=== PATIENT | male | born 1990 | race Caucasian/White ===

== ENCOUNTER 2022-03-18 10:36 | Emergency (ER) | payer OTHER ==
[~2022-03-18] VITALS: Ht 182.9 cm; Wt 116.9 kg
[2022-03-18] MEDS ORDERED: LOSARTAN 50MG TABLET PO ONE (16:40)
[2022-03-18] MEDS ORDERED: amLODIPine 5 MG TAB PO ONE (16:40)
[2022-03-18] MEDS ORDERED: hydroCHLOROthiazide 12.5 MG CAPSULE PO ONE (16:40)
[2022-03-18 17:00] LABS: HEMATOCRIT 46.3 % (42.0-52.0); HEMOGLOBIN 15.6 g/dl (13.5-17.5); MEAN CORPUSCULAR HEMOGLOBIN 29.5 pg (27.0-33.0); MEAN CORPUSCULAR HGB CONC 33.7 g/dl (32.0-36.5); MEAN CORPUSCULAR VOLUME 87.7 fl (80.0-96.0); PLATELET COUNT, AUTOMATED 277 10^3/uL (150-450); RED BLOOD COUNT 5.28 10^6/uL (4.30-6.10)
[2022-03-18 17:19] LABS: BLOOD UREA NITROGEN 12 MG/DL (7-18); CALCIUM LEVEL 9.3 MG/DL (8.5-10.1); CARBON DIOXIDE LEVEL 30 MEQ/L (21-32); CHLORIDE LEVEL 105 MEQ/L (98-107); CREATININE FOR GFR 1.12 MG/DL (0.70-1.30); GLOMERULAR FILTRATION RATE > 60.0 (>60); GLUCOSE, FASTING 80 MG/DL (70-100); POTASSIUM SERUM 4.2 MEQ/L (3.5-5.1); SODIUM LEVEL 139 MEQ/L (136-145)
[2022-03-18 17:27] VITALS: BP 154/103
[2022-03-18 17:34] LABS: ATYPICAL LYMPH 13 % (0-5); BASOPHILS 1 % (0-1); EOSINOPHILS 1 % (0-3); LYMPHOCYTES 42 % (16-44); MONOCYTES 3 % (0-5); NEUTROPHILS 40 % (28-66); PLATELET ESTIMATE NORMAL (NORMAL)
[2022-03-18 18:31] VITALS: BP 164/106
== END 2022-03-18 18:55 | disposition home or self-care (01) ==
LOC: M ED 10:36
DX: I10 Essential (primary) hypertension (principal)

== ENCOUNTER → 2022-06-24 | Outpatient (CLI) | payer OTHER | LOC: M SLEEP HO 13:29 | PROVIDERS: ATTEND Internal Medicine Cardiovascular Disease | DX: R06.83 Snoring (principal) ==

== ENCOUNTER 2024-03-09 10:33 | Emergency (ER) | payer OTHER ==
[~2024-03-09] VITALS: Ht 182.9 cm; Wt 108.5 kg
[2024-03-09 10:33] VITALS: BP 137/78; TEMP 97.5; O2SAT 99
[2024-03-09] MEDS ORDERED: LORA-930 (10:50)
[2024-03-09] MEDS ORDERED: LOSA50TA28 (10:50)
[2024-03-09] MEDS ORDERED: AMLO1TAB25 (10:50)
[2024-03-09] MEDS ORDERED: METO1TAB7 (10:50)
== END 2024-03-09 13:57 | disposition home or self-care (01) ==
LOC: M ED 10:33
DX: S42.021A Displaced fracture of shaft of right clavicle, initial encounter for closed fracture (principal); Y92.9 Unspecified place or not applicable; Y93.9 Activity, unspecified; Y99.9 Unspecified external cause status; I10 Essential (primary) hypertension; V00.131A Fall from skateboard, initial encounter; Z79.899 Other long term (current) drug therapy

== ENCOUNTER → 2024-03-12 | Outpatient (CLI) | payer OTHER ==
[~2024-03-12] MED LIST: AMLO1TAB25; LORA-930; LOSA50TA28; METO1TAB7; OXYC1TAB23 PO
== END ==
LOC: M SOG 09:21
PROVIDERS: ATTEND Orthopaedic Surgery
DX: S42.001A Fracture of unspecified part of right clavicle, initial encounter for closed fracture (principal); W18.30XA Fall on same level, unspecified, initial encounter; Y92.009 Unspecified place in unspecified non-institutional (private) residence as the place of occurrence of the external cause

== ENCOUNTER → 2024-03-12 | Outpatient (CLI) | payer OTHER ==
[2024-03-12 11:20] LABS: BASO % 0.4 % (0.0-1.0); EOS # 0.2 10^3/uL (0.0-0.5); EOS % 2.5 % (0.0-3.0); HEMATOCRIT 44.8 % (42.0-52.0); HEMOGLOBIN 15.1 g/dl (13.5-17.5); LYMPH # 2.4 10^3/uL (1.5-5.0); LYMPH % 26.1 % (24.0-44.0); MEAN CORPUSCULAR HEMOGLOBIN 29.8 pg (27.0-33.0); MEAN CORPUSCULAR HGB CONC 33.7 g/dl (32.0-36.5); MEAN CORPUSCULAR VOLUME 88.4 fl (80.0-96.0); MONO # 0.7 10^3/uL (0.0-0.8); NEUTROPHILS # 5.9 10^3/uL (1.5-8.5); NEUTROPHILS % 63.7 % (36.0-66.0); PLATELET COUNT, AUTOMATED 272 10^3/uL (150-450); RED BLOOD COUNT 5.07 10^6/uL (4.30-6.10); WHITE BLOOD COUNT 9.3 10^3/uL (4.0-10.0)
[2024-03-12 11:33] LABS: INR 0.99; PROTHROMBIN TIME 12.8 SECONDS (12.5-14.5)
[2024-03-12 11:42] LABS: ALBUMIN 4.1 G/DL (3.2-5.2); ALKALINE PHOSPHATASE 114 U/L (46-116); ALT/SGPT 34 U/L (7.0-40); AST/SGOT 23 U/L (<34); BILIRUBIN,TOTAL 0.9 MG/DL (0.3-1.2); BLOOD UREA NITROGEN 10 MG/DL (9-23); CALCIUM LEVEL 9.7 MG/DL (8.5-10.1); CARBON DIOXIDE LEVEL 26 MMOL/L (20-31); CHLORIDE LEVEL 108 MMOL/L (98-107); CREATININE FOR GFR 0.85 MG/DL (0.70-1.30); GLOMERULAR FILTRATION RATE > 60.0 (>60); GLUCOSE, FASTING 87 MG/DL (60-100); POTASSIUM SERUM 4.5 MMOL/L (3.5-5.1); SODIUM LEVEL 141 MMOL/L (136-145); TOTAL PROTEIN 7.1 G/DL (5.7-8.2)
== END ==
LOC: M LAB 10:21
PROVIDERS: ATTEND Orthopaedic Surgery
DX: S42.001A Fracture of unspecified part of right clavicle, initial encounter for closed fracture (principal); W18.30XA Fall on same level, unspecified, initial encounter; Y92.009 Unspecified place in unspecified non-institutional (private) residence as the place of occurrence of the external cause

== ENCOUNTER 2024-03-13 06:19 | Day surgery (SDC) | payer OTHER ==
[~2024-03-13] VITALS: Ht 182.9 cm; Wt 108.9 kg
[~2024-03-13 06:19] MED LIST changes: -OXYC1TAB23 PO
[2024-03-13] MEDS ORDERED: propofoL 200 MG/20 ML VIAL As Ordered ONE (07:16)
[2024-03-13] MEDS ORDERED: HYDROmorphone HCL 2MG/ML 1ML VIAL As Ordered ONE (07:16)
[2024-03-13] MEDS ORDERED: MIDAZOLAM INJ 2MG/2ML VIAL As Ordered ONE (07:16)
[2024-03-13] MEDS ORDERED: ROCURONIUM BROMIDE 50MG/5ML VIAL As Ordered ONE (07:17)
[2024-03-13] MEDS: LR 1,000 ML IV SCH (07:19)
[2024-03-13] MEDS ORDERED: LIDOCAINE 2% 100MG/5ML SDV (FOR ANES.) As Ordered ONE (07:22)
[2024-03-13] MEDS: ceFAZolin 2 GM/D5W 50 ML IV BAG As Ordered ONE (07:56)
[2024-03-13] MEDS ORDERED: ONDANSETRON 4MG 2ML VIAL As Ordered ONE (08:19)
[2024-03-13] MEDS ORDERED: ACETAMINOPHEN 1000MG 100ML IV BAG As Ordered ONE (08:19)
[2024-03-13] MEDS ORDERED: KETOROLAC 60MG 2ML VIAL As Ordered ONE (08:20)
[2024-03-13] MEDS ORDERED: SUGAMMADEX SODIUM 500 MG/5 ML VIAL (BRIDION) As Ordered ONE (08:47)
[2024-03-13] MEDS ORDERED: ONDANSETRON 4MG 2ML VIAL IV PRN (09:05)
[2024-03-13] MEDS ORDERED: fentaNYL 100 MCG/2 ML INJECTION IV PRN (09:05)
[2024-03-13] MEDS ORDERED: oxyCODONE 5MG TAB PO PRN (09:05)
[2024-03-13] MEDS ORDERED: LR 1,000 ML IV SCH (09:05)
[2024-03-13] MEDS: BACITRACIN OINTMENT 30GM TUBE As Ordered ONE (09:05)
[2024-03-13] MEDS ORDERED: HYDROMORPHONE HCL 0.5 MG/ 0.5 ML SYRINGE IV PRN (09:05)
[2024-03-13] MEDS ORDERED: OXYC1TAB23 PO (09:32)
[2024-03-13 10:55] VITALS: BP 136/82; TEMP 97.6; O2SAT 98
== END 2024-03-13 10:55 | disposition home or self-care (01) ==
LOC: M SDC 06:19
PROVIDERS: ATTEND Orthopaedic Surgery
DX: S42.021A Displaced fracture of shaft of right clavicle, initial encounter for closed fracture (principal); V00.131A Fall from skateboard, initial encounter; Y93.51 Activity, roller skating (inline) and skateboarding; Y92.9 Unspecified place or not applicable; I10 Essential (primary) hypertension; Z79.899 Other long term (current) drug therapy; Z88.8 Allergy status to other drugs, medicaments and biological substances
CPT/HCPCS: 23515; 76000; C1713; J0131; J0665; J0690; J1100; J1170; J1885; J2250; J2405

== ENCOUNTER → 2024-03-28 | Outpatient (CLI) | payer OTHER ==
[~2024-03-28] MED LIST changes: +OXYC1TAB23 PO
== END ==
LOC: M SOG 07:53
PROVIDERS: ATTEND Physician Assistant
DX: Z47.89 Encounter for other orthopedic aftercare (principal); S42.001A Fracture of unspecified part of right clavicle, initial encounter for closed fracture; Y93.9 Activity, unspecified; Y92.9 Unspecified place or not applicable

== ENCOUNTER → 2024-04-25 | Outpatient (CLI) | payer OTHER | LOC: M SOG 09:23 | PROVIDERS: ATTEND Orthopaedic Surgery | DX: S42.021D Displaced fracture of shaft of right clavicle, subsequent encounter for fracture with routine healing (principal); Y93.9 Activity, unspecified; Y92.9 Unspecified place or not applicable ==

== ENCOUNTER → 2024-05-09 | Outpatient (CLI) | payer OTHER | LOC: M SOG 07:54 | PROVIDERS: ATTEND Orthopaedic Surgery | DX: S42.021D Displaced fracture of shaft of right clavicle, subsequent encounter for fracture with routine healing (principal); Y93.9 Activity, unspecified; Y92.9 Unspecified place or not applicable ==